=== PATIENT | female | born 1980 | race African-American/Black ===

== ENCOUNTER 2019-03-19 15:23 | Outpatient (CLI) | payer MEDICAID ==
--- NOTE | 2019-03-19 17:35 | ULT ---
PELVIC ULTRASOUND: INDICATIONS: Pelvic pain. TECHNIQUE: Transabdominal and endovaginal ultrasound of the pelvis performed. FINDINGS: The uterus has a normal sonographic appearance. The endometrial stripe within the normal range measur ed at approximately 8 mm. Both ovaries are identified and appear unremarkable. Color Doppler with spectral analysis demonstrates blood flow to both ovaries. No free fluid identifie d. IMPRESSION: Unremarkable pelvic ultrasound. POS: [facility]
== END 2019-03-19 15:24 | disposition home or self-care (01) ==
LOC: SCSULT 15:23
PROVIDERS: ATTEND Nurse Practitioner
DX: R10.2 Pelvic and perineal pain (principal)
CPT/HCPCS: 76856